=== PATIENT | female | born 1985 | race Caucasian/White ===

== ENCOUNTER 2017-04-11 13:44 | Inpatient (IN) | payer MEDICAID, OTHER ==
[~2017-04-11] VITALS: Ht 157.5 cm; Wt 72.0 kg
[2017-04-11] VITALS (17 sets, daily range): BP systolic 94–118; BP diastolic 53–73; PULSE 100–112; RESP 12–19; Ht 157.5 cm; Wt 72.0 kg
[~2017-04-11 13:44] MED LIST: EPHEDrine SULFATE 50 MG/5 ML SYG ONE
[2017-04-11] MEDS ORDERED: SOD CHLORIDE 0.9% 1,000 ML IV STA (14:07)
[2017-04-11 14:27] LABS: ADD SCAN DIFF NO
[2017-04-11 14:30] LABS: BASOPHILS % 0.1 % (0.0-2.0); EOSINOPHILS % 0.3 % (0.0-7.0); HEMATOCRIT 35.3 % (37.0-47.0); HEMOGLOBIN 12.4 g/dl (12.0-16.0); LYMPHOCYTES # 2.2 10^3/ul (0.8-2.9); LYMPHOCYTES % 15.9 % (15.0-51.0); MEAN CORPUSCULAR HEMOGLOBIN 31.2 pg (29.0-33.0); MEAN CORPUSCULAR HGB CONC 35.1 g/dl (32.0-37.0); MEAN CORPUSCULAR VOLUME 88.9 fl (82.0-101.0); MEAN PLATELET VOLUME 9.2 fl (7.4-10.4); MONOCYTE # 0.6 10^3/ul (0.3-0.9); MONOCYTES % 4.4 % (0.0-11.0); NEUTROPHIL # 10.9 10^3/ul (1.6-7.5); NEUTROPHILS % 78.7 % (39.0-77.0); PLATELET COUNT 231 10^3/UL (140-415); RED BLOOD COUNT 3.97 10^6/ul (4.20-5.40); RED CELL DISTRIBUTION WIDTH 12.6 % (11.5-14.5); WHITE BLOOD COUNT 13.8 10^3/ul (4.8-10.8)
[2017-04-11] MEDS ORDERED: ONDANSETRON 4 MG INJ IV PRN ×2 (14:30→19:00)
[2017-04-11] MEDS ORDERED: ACETAMINOPHEN 325 MG TAB PO PRN (14:30)
[2017-04-11 14:47] LABS: ALBUMIN 3.3 g/dl (3.3-4.9); POTASSIUM 3.5 mmol/L (3.5-5.1)
[2017-04-11 14:49] LABS: BILIRUBIN,INDIRECT 0.3 mg/dl (0-1.1); BILIRUBIN,TOTAL 0.3 mg/dl (0.2-1.3); CREATININE 0.56 mg/dl (0.44-1.00)
[2017-04-11 14:50] LABS: ALBUMIN/GLOBULIN RATIO 1.03; CALCIUM 8.4 mg/dl (8.4-10.2); TOTAL PROTEIN 6.5 g/dl (6.1-8.1)
--- NOTE | 2017-04-11 14:51 | RADRPT ---
PROCEDURE: XR Chest. CLINICAL INDICATION: chest pain, vaginal bleeding TECHNIQUE: Single frontal view of the chest was obtained COMPARISON: None FINDINGS: The heart and mediastinum are within normal limits. The lungs are clear. There is no pleural effusion or pneumothorax. RPTAT: AA IMPRESSION: No acute disease. .Renard Leary MD, MD Date Time Electronically viewed and signed by .Renard Leary MD, on 04/11/2017 14:51 .S/
--- NOTE | 2017-04-11 15:47 | RADRPT ---
PROCEDURE: US Pelvis. TECHNIQUE: Multiple sonographic images of the pelvis were obtained utilizing a transabdominal and endovaginal technique. The images were reviewed on a PACS workstation. COMPARISON: None. FINDINGS: The uterus is normal in size with a normal appearance of the myometrium. The uterus measures 10.5 x 4.3 x 4.5 cm. The endometrial stripe is heterogeneous in appearance and has the thickness of 16 mm. There is no increased vascularity. The ovaries are not visualized. No adnexal masses are seen. No free fluid is present within the pelvis. RPTAT: AA IMPRESSION: Heterogeneous and thickened endometrium with no increased vascularity. Ovaries not visualized. .Renard Leary MD, MD Date Time Electronically viewed and signed by .Renard Leary MD, MD on 04/11/2017 15:46 .S/
[2017-04-11] MEDS ORDERED: APIXABAN 5 MG TABLET PO ONE (16:30)
--- NOTE | 2017-04-11 16:34 | HP ---
Date/Time of Note Date/Time of Note DATE: 04/11/17 TIME: 16:27 Assessment/Plan VTE Prophylaxis VTE Prophylaxis Intervention: SCD's Assessment/Plan Assessment/Plan 31 y/o with active vaginal bleeding s/p TAB -admit to inpatient -plan to D&C for retained POC -serial cbc, transfuse prn HPI/ROS Admit Date/Time Admit Date/Time Hx of Present Illness 31 y/o [facility]. Patient started hemorrhaging during and after procedure. [facility] and felt she was bleeding from the cervical area. A teresa balloon and ring forceps were placed in transit. In the ER, patient continued to bleed heavily. Reports pain has decreased on its own. ROS Per HPI. Other systems negative. PMH/Family/Social Past Medical History Medical History: no pertinent history Past Surgical History TAB today Family History Significant Family History: no pertinent family hx Social History Denies habits. Smoking Status: Never smoker Exam/Review of Systems Vital Signs Vitals Vital Signs Date Time Temp Pulse Resp B/P Pulse Ox O2 Delivery O2 Flow Rate FiO2 04/11/17 14:02 97.4 73 18 100/72 97 Exam Exam Gen: NAD HEENT: NCAT CV: RRR Pulm: CTAB Abd: +ttp in lower abdomen, no r/g Ext: NT Pelvic: enlarged uterus, +ttp, +blood clots in os, retained POC in external os with active bleeding Labs Result Diagram: 04/11/17 14204/11/17 1420 KANDICE WEST April 11, 2017 16:34
[2017-04-11] MEDS ORDERED: LIDOCAINE 2% (SDV) 5 ML INJ ONE (17:37)
[2017-04-11] MEDS ORDERED: PROPOFOL 20 ML ONE (17:37)
[2017-04-11] MEDS ORDERED: MEPERIDINE 100 MG INJ ONE (17:37)
[2017-04-11] MEDS ORDERED: METOCLOPRAMIDE 10 MG INJ ONE (18:04)
[2017-04-11] MEDS ORDERED: CEFAZOLIN 1 GM INJ ONE (18:04)
[2017-04-11] MEDS ORDERED: ONDANSETRON 4 MG INJ ONE (18:04)
[2017-04-11] MEDS ORDERED: METHYLERGONOVINE 0.2 MG INJ ONE (18:07)
--- NOTE | 2017-04-11 18:47 | ERA ---
ER Documentation Chief Complaint Date/Time DATE: 04/11/17 TIME: 18:44 Chief Complaint BIB RA FOR EVAL OF HEAVY VB DURING D&C IN CLINIC HPI Patient is a 31-year-old female with no medical problems who presents with vaginal bleeding. The patient [facility] at [facility] receiving an at 11 weeks but after the she kept bleeding. She was given Pitocin and misoprostol and was transferred to the emergency department by ambulance. She is complaining of abdominal and pelvic pain. She feels cold. She is a Ab1. She does not currently have a primary doctor and does not know the name of the spud sorter. ROS All systems reviewed and are negative except as per history of present illness. Medications Home Meds No Active Prescriptions or Reported Meds Allergies Allergies: Coded Allergies: No Known Allergy (Unverified , 04/11/17) PMhx/Soc Medical and Surgical Hx: pt denies Medical Hx, pt denies Surgical Hx Hx Alcohol Use: No Hx Substance Use: No Hx Tobacco Use: No Smoking Status: Never smoker FmHx Family History: No diabetes Physical Exam Vitals Vital Signs Date Time Temp Pulse Resp B/P Pulse Ox O2 Delivery O2 Flow Rate FiO2 04/11/17 16:40 75 20 100/82 98 Room Air 04/11/17 14:02 97.4 73 18 100/72 97 Physical Exam Const: Moderate distress Head: Atraumatic Eyes: Normal Conjunctiva ENT: Normal External Ears, Nose and Mouth. Neck: Full range of motion..~ No meningismus. Resp: Clear to auscultation bilaterally Cardio: Regular rate and rhythm, no murmurs Abd: Soft, non tender, non distended. Normal bowel sounds Skin: Pale skin Back: No midline or flank tenderness Ext: No cyanosis, or edema Neur: Awake and alert : Patient has 2 hemostats inside the vagina clamp and the cervix at this time as well as a Caldwell catheter which is blown up inside the cervix Result Diagram: 04/11/17 1420 04/11/17 1420 Results 24 hrs Laboratory Tests Test 04/11/17 14:20 White Blood Count 13.810^3/ul Red Blood Count 3.9710^6/ul Hemoglobin 12.4g/dl Hematocrit 35.3% Mean Corpuscular Volume 88.9fl Mean Corpuscular Hemoglobin 31.2pg Mean Corpuscular Hemoglobin Concent 35.1g/dl Red Cell Distribution Width 12.6% Platelet Count 26915^3/UL Mean Platelet Volume 9.2fl Neutrophils % 78.7% Lymphocytes % 15.9% Monocytes % 4.4% Eosinophils % 0.3% Basophils % 0.1% Nucleated Red Blood Cells % 0.0/100WBC Neutrophils # 10.910^3/ul Lymphocytes # 2.210^3/ul Monocytes # 0.610^3/ul Eosinophils # 0.010^3/ul Basophils # 0.010^3/ul Nucleated Red Blood Cells # 0.010^3/ul Sodium Level 136mmol/L Potassium Level 3.5mmol/L Chloride Level 107mmol/L Carbon Dioxide Level 16mmol/L Anion Gap 17 Blood Urea Nitrogen 6mg/dl Creatinine 0.56mg/dl Glucose Level 102mg/dl Calcium Level 8.4mg/dl Total Bilirubin 0.3mg/dl Direct Bilirubin 0.00mg/dl Indirect Bilirubin 0.3mg/dl Aspartate Amino Transf (AST/SGOT) 24IU/L Alanine Aminotransferase (ALT/SGPT) 29IU/L Alkaline Phosphatase 45IU/L Total Protein 6.5g/dl Albumin 3.3g/dl Globulin 3.20g/dl Albumin/Globulin Ratio 1.03 Beta HCG, Quantitative 20604.0mIU/ml Current Medications Medications (Trade) Dose Ordered Sig/Yun Route PRN Reason Start Time Stop Time Status Last Admin Dose Admin Sodium Chloride (NS) 1,000 ml @ 1,000 mls/hr Q1H STAT IV 04/11/17 14:07 04/11/17 15:06 DC 04/11/17 14:53 Ondansetron HCl (Zofran Inj) 4 mg BRIDGE ORDER PRN IV NAUSEA AND/OR VOMITING 04/11/17 14:30 04/12/17 14:29 Acetaminophen (Tylenol Tab) 650 mg ER BRIDGE PRN PO MILD PAIN/FEVER 04/11/17 14:30 04/12/17 14:29 Apixaban (Eliquis) 10 mg ONCE ONCE PO 04/11/17 16:30 04/11/17 16:30 DC Procedures/MDM Ultrasound shows no obvious retained products of conception per radiology. Patient is a 31-year-old female presents with acute vaginal bleeding after D&C. The patient continues to bleed after Dr. Silva the laborist cardiopulmonary physical therapist came to the bedside and remove the clamps. Therefore the patient will need to be taken to the operating room for further procedure. Dr. Silva Martin products of the cervical office and these will need to be removed but she will do this in the operating room. The patient's hemoglobin is 12 at this time and she does not require transfusion but she has bled a significant amount and on repeat H&H may have dropped. She appears to be hemodynamically intact at this time and has no issues with coagulation and is on no anticoagulant medicines. Critical Care: Time: 35 minutes excluding all billable procedures. Treatments/Evaluations: Close monitoring and treatment of unstable vital signs, cardiorespiratory, and neurologic status, while maintaining tight balance of fluid, respiratory, and cardiac interventions. Departure Diagnosis: Primary Impression: Vaginal bleeding Condition: COLT Sebastian MD April 11, 2017 18:47
--- NOTE | 2017-04-11 18:55 | OPR ---
Date/Time of Note Date/Time of Note DATE: 04/11/17 TIME: 18:48 Operative Report Procedure Date: April 11, 2017 Preoperative Diagnosis Incomplete Sab, vaginal bleeding Postoperative Diagnosis Same Operation Performed Dilation and suction curettage, placement of Bakri balloon Surgeon: KANDICE WEST Anesthesia: general Anesthesiologist: ANGELES KEYES MD Estimated Blood Loss: other Specimens Uterine contents, products of conception Complications Active bleeding s/p D&C treated with methergine and Bakri balloon Disposition: PACU Operative\Procedure Findings 9 week size uterus, active bleeding Procedure Description Patient was taken to the OR where general anesthesia was administered. She was prepped and draped in the usual sterile fashion in dorsal lithotomy position in [facility]. A weighted speculum was placed and anterior cervix was grasped with a ring forceps. The cervix was dilated and easily accomodated a 12mm suction curette tip which was passed multiple times until uterus was noted to be empty. Sharp curette was used to confirm. Patient continued to have active bleeding despite giving methergine. Therefore, a Bakri balloon was placed and inflated to 180cc. Bleeding subsided after placement. Caldwell catheter was also placed. EBL 800ml in OR. KANDICE WEST. April 11, 2017 18:55
[2017-04-11] MEDS ORDERED: HYDROmorphONE (0.2 MG/ML) 10ML SYG IV ONE (18:56)
[2017-04-11] MEDS ORDERED: DIPHENHYDRAMINE 50 MG INJ IV PRN (19:00)
[2017-04-11] MEDS ORDERED: EPHEDrine SULFATE 50 MG/5 ML SYG IV PRN (19:00)
[2017-04-11] MEDS ORDERED: morphine (1 MG/ML) 10ML SYRINGE IV PRN ×2 (19:00)
[2017-04-11] MEDS ORDERED: METHYLERGONOVINE 0.2 MG TAB PO SCH (19:00)
[2017-04-11] MEDS ORDERED: hydrALAzine 20 MG INJ IV PRN (19:00)
[2017-04-11] MEDS ORDERED: HYDROmorphONE (0.2 MG/ML) 10ML SYG IV PRN (19:00)
[2017-04-11] MEDS ORDERED: METOCLOPRAMIDE 10 MG INJ IV PRN (19:00)
[2017-04-11] MEDS ORDERED: MIDAZOLAM 1 MG/ML 2 ML INJ IV PRN (19:00)
[2017-04-11] MEDS ORDERED: NACL 0.9% 3 ML SYG IV SCH (19:00)
[2017-04-11] MEDS ORDERED: HYDROCODONE/APAP (5/325) TAB PO PRN (19:00)
[2017-04-11] MEDS ORDERED: LABETALOL HCL 20MG INJ IV PRN (19:00)
[2017-04-11] MEDS ORDERED: IBUPROFEN 600 MG TAB PO PRN (19:00)
[2017-04-11] MEDS ORDERED: MEPERIDINE 25 MG INJ IV PRN (19:00)
[2017-04-11] MEDS: HYDROmorphONE (0.2 MG/ML) 10ML SYG IV PRN ×2 (19:05→19:19)
[2017-04-11 19:13] LABS: ADD UMIC YES; URINE BILIRUBIN (Dip) 1+ (NEGATIVE); URINE BLOOD (Dip) 1+ (NEGATIVE); URINE COLOR DK. YELLOW (YELLOW); URINE GLUCOSE (Dip) NEGATIVE (NEGATIVE); URINE KETONES (Dip) 40 (NEGATIVE); URINE LEUKOCYTE ESTERASE (Dip) NEGATIVE (NEGATIVE); URINE NITRITE (Dip) NEGATIVE (NEGATIVE); URINE TOTAL PROTEIN (Dip) 1+ (NEGATIVE); URINE UROBILINOGEN (Dip) 0.2 E.U./dL (0.1-1.0)
[2017-04-11 19:23] LABS: ICTOTEST NEGATIVE (NEGATIVE)
[2017-04-11 19:36] LABS: ADD SCAN DIFF NO
[2017-04-11 19:39] LABS: BASOPHILS % 0.1 % (0.0-2.0); HEMATOCRIT 24.2 % (37.0-47.0); HEMOGLOBIN 8.1 g/dl (12.0-16.0); LYMPHOCYTES # 1.2 10^3/ul (0.8-2.9); LYMPHOCYTES % 8.5 % (15.0-51.0); MEAN CORPUSCULAR HEMOGLOBIN 30.8 pg (29.0-33.0); MEAN CORPUSCULAR HGB CONC 33.5 g/dl (32.0-37.0); MEAN PLATELET VOLUME 9.5 fl (7.4-10.4); MONOCYTE # 0.3 10^3/ul (0.3-0.9); MONOCYTES % 2.4 % (0.0-11.0); NEUTROPHILS % 88.3 % (39.0-77.0); PLATELET COUNT 163 10^3/UL (140-415); RED BLOOD COUNT 2.63 10^6/ul (4.20-5.40); RED CELL DISTRIBUTION WIDTH 12.8 % (11.5-14.5); WHITE BLOOD COUNT 13.6 10^3/ul (4.8-10.8)
[2017-04-11] MEDS: SOD CHLORIDE 0.9% 1,000 ML IV SCH (21:52)
[2017-04-11] MEDS: CEFAZOLIN 1 GM/50 ML (PMX) 50 ML IVPB SCH (21:52)
[2017-04-12] VITALS (9 sets, daily range): BP systolic 75–97; BP diastolic 42–60; PULSE 93–108; RESP 18–22
[2017-04-12] MEDS: SOD CHLORIDE 0.9% 1,000 ML IV SCH ×3 (02:16→18:51)
[2017-04-12] MEDS: METHYLERGONOVINE 0.2 MG TAB PO SCH ×4 (04:30→21:34)
[2017-04-12] MEDS: CEFAZOLIN 1 GM/50 ML (PMX) 50 ML IVPB SCH ×3 (05:20→21:14)
--- NOTE | 2017-04-12 09:32 | QN ---
Documentation Comment patient is seen at the bedside :Bakri balloon was removed .It appears there there are no further bleeding in vaginal exam Caldwell catheter was removed CBC B-HCG and Repeat ultrasound ordered patient's questions extensively answered cytotec 200 microgram q 6hr PO started KAYLYNN SANDERSON M.D. April 12, 2017 09:31
[2017-04-12 10:00] LABS: ADD SCAN DIFF NO
[2017-04-12 10:06] LABS: ABNORMAL IP MESSAGE 1; BASOPHILS % 0.1 % (0.0-2.0); EOSINOPHILS % 0.2 % (0.0-7.0); HEMATOCRIT 19.8 % (37.0-47.0); LYMPHOCYTES # 2.1 10^3/ul (0.8-2.9); LYMPHOCYTES % 18.6 % (15.0-51.0); MEAN CORPUSCULAR HEMOGLOBIN 30.5 pg (29.0-33.0); MEAN CORPUSCULAR HGB CONC 32.8 g/dl (32.0-37.0); MEAN PLATELET VOLUME 9.1 fl (7.4-10.4); MONOCYTE # 0.6 10^3/ul (0.3-0.9); MONOCYTES % 5.3 % (0.0-11.0); NEUTROPHIL # 8.6 10^3/ul (1.6-7.5); NEUTROPHILS % 75.4 % (39.0-77.0); PLATELET COUNT 173 10^3/UL (140-415); RED BLOOD COUNT 2.13 10^6/ul (4.20-5.40); RED CELL DISTRIBUTION WIDTH 13.1 % (11.5-14.5)
[2017-04-12 10:17] LABS: HEMOGLOBIN 6.5 g/dl (12.0-16.0)
--- NOTE | 2017-04-12 12:21 | RADRPT ---
PROCEDURE: US Pelvis TECHNIQUE: Multiple sonographic images of the pelvis were obtained utilizing a transabdominal and endovaginal technique. The images were reviewed on a PACS workstation. COMPARISON: Pelvic ultrasound from 04/11/2017 FINDINGS: The uterus measures 10.6 x 4.9 x 5.8 cm. The endometrial echo complex measures 12 mm in thickness at the level of the fundal apex. There is a complex fluid collection without vascular flow, likely b lood products, in the endocervical canal with somewhat irregular borders at the level of the lower u terine segment measuring 2.5 x 2.0 x 2.7 cm. There is no evidence of focal vascularity in the endome trium to suggest retained products of conception. Several sub-centimeter Nabothian cysts are identified. The right ovary measures 2.5 x 1.3 x 2.0 cm. The left ovary measures 2.5 x 1.7 x 2.1 cm. There is no rmal vascular flow in both ovaries. There is a 1.9 cm complex cystic lesion with posterior acoustic enhancement, heterogeneous internal echoes, and prominent peripheral vascular flow in the left ovary which is likely a corpus luteal cys t. No significant pelvic free fluid is identified. IMPRESSION: Thickening of the endometrium to 12 mm without evidence of retained products of conception. An irregular 2.7 cm collection in the endocervical canal at the level of the lower uterine segment i s likely due to blood products from the recent dilatation and curettage. 1.9 cm complex cystic lesion in the left ovary is likely a corpus luteal cyst. RPTAT: EE William Francis Physician Date Time Electronically viewed and signed by William Francis Physician on 04/12/2017 12:20 /
[2017-04-12 15:27] LABS: WHITE BLOOD COUNT 11.4 10^3/ul (4.8-10.8)
[2017-04-13] MEDS: SOD CHLORIDE 0.9% 1,000 ML IV SCH ×2 (04:16→10:55)
[2017-04-13] MEDS: METHYLERGONOVINE 0.2 MG TAB PO SCH ×3 (04:30→16:30)
[2017-04-13] MEDS: CEFAZOLIN 1 GM/50 ML (PMX) 50 ML IVPB SCH ×2 (05:23→14:00)
[2017-04-13 05:24] LABS: ADD SCAN DIFF NO
[2017-04-13 05:31] LABS: BASOPHILS % 0.1 % (0.0-2.0); EOSINOPHILS # 0.1 10^3/ul (0.0-0.5); EOSINOPHILS % 0.9 % (0.0-7.0); HEMATOCRIT 23.8 % (37.0-47.0); HEMOGLOBIN 8.1 g/dl (12.0-16.0); LYMPHOCYTES # 2.6 10^3/ul (0.8-2.9); LYMPHOCYTES % 32.4 % (15.0-51.0); MEAN CORPUSCULAR HEMOGLOBIN 30.3 pg (29.0-33.0); MEAN CORPUSCULAR VOLUME 89.1 fl (82.0-101.0); MEAN PLATELET VOLUME 9.5 fl (7.4-10.4); MONOCYTE # 0.5 10^3/ul (0.3-0.9); MONOCYTES % 6.3 % (0.0-11.0); NEUTROPHIL # 4.8 10^3/ul (1.6-7.5); NEUTROPHILS % 59.8 % (39.0-77.0); PLATELET COUNT 154 10^3/UL (140-415); RED BLOOD COUNT 2.67 10^6/ul (4.20-5.40); RED CELL DISTRIBUTION WIDTH 15.1 % (11.5-14.5); WHITE BLOOD COUNT 8.1 10^3/ul (4.8-10.8)
[2017-04-13 07:00] VITALS: BP 103/64; RESP 18
--- NOTE | 2017-04-13 18:03 | PD.PPDC ---
RAMP SUPERVISOR Discharge Instruction Condition Patient Condition: Good Diet Diet: Resume Regular Diet Activity/Restrictions Activity: Normal Activity May Shower Restrictions: No Sexual Activity Nothing in the Vagina No Perla No Tampons, douche Follow-up Follow-up with Physician: 3, Day/Days Provider Information: [facility] Return to clinic for GRAIN RECEIVER Instructions: Fever greater than 101 Chills Worsening abdominal pain Excessive Vaginal Bleeding LOKESH LADD MD April 13, 2017 18:02
--- NOTE | 2017-04-13 18:13 | DS ---
Date/Time of Note Date/Time of Note DATE: 04/13/17 TIME: 18:05 Discharge Summary Admission/Discharge Info Admit Date/Time April 11, 2017 at 20:33 Discharge Date/Time March. Final Diagnosis Completed elective . S/P hemorrhage with procedure. S/P blood transfusion. Patient Condition: Good Procedures D and C. Transfuse 2 units PRBC's. Hx of Present Illness 31 y/o [facility] Patient started hemorrhaging during and after procedure. [facility] were [facility] to [facility] and felt she was bleeding from the cervical area. A teresa balloon and ring forceps were placed in transit. In the ER, patient continued to bleed heavily. Reports pain has decreased on its own. Hospital Course Pt was taken to the OR for retained products to complete the AB and the pt again hemorrhaged and was not able to be controlled via usual means. A Bakri balloon was placed x 24 hours. When it was removed the pt did well. She did need 2 units of blood but today her Hgb is 8.1 and she has no bleeding of note. Home Meds No Active Prescriptions or Reported Meds Follow-up Plan Pt to [facility] to [facility] 04[facility]16 to get a Depo-Provera shot. Pt encouraged to be very good about control and if she does get that it will be a that she wants as she may have this same problem even after delivery of a baby. She will potentially at increased risk of a hysterectomy, as well, at that time. She and her boyfriend indicated understanding. Primary Care Provider Care Physician No Primary Time spent on discharge: < 30 minutes Pending Labs Laboratory Tests Test 04/13/17 04:35 White Blood Count 8.110^3/ul (4.8-10.8) Red Blood Count 2.6710^6/ul (4.20-5.40) Hemoglobin 8.1g/dl (12.0-16.0) Hematocrit 23.8% (37.0-47.0) Mean Corpuscular Volume 89.1fl (82.0-101.0) Mean Corpuscular Hemoglobin 30.3pg (29.0-33.0) Mean Corpuscular Hemoglobin Concent 34.0g/dl (32.0-37.0) Red Cell Distribution Width 15.1% (11.5-14.5) Platelet Count 01828^3/UL (140-415) Mean Platelet Volume 9.5fl (7.4-10.4) Neutrophils % 59.8% (39.0-77.0) Lymphocytes % 32.4% (15.0-51.0) Monocytes % 6.3% (0.0-11.0) Eosinophils % 0.9% (0.0-7.0) Basophils % 0.1% (0.0-2.0) Nucleated Red Blood Cells % 0.0/100WBC (0.0-0.0) Neutrophils # 4.810^3/ul (1.6-7.5) Lymphocytes # 2.610^3/ul (0.8-2.9) Monocytes # 0.510^3/ul (0.3-0.9) Eosinophils # 0.110^3/ul (0.0-0.5) Basophils # 0.010^3/ul (0.0-0.1) Nucleated Red Blood Cells # 0.010^3/ul (0.0-0.0) Beta HCG, Quantitative 7824.2mIU/ml LOKESH LADD MD April 13, 2017 18:12
== END 2017-04-13 18:45 | disposition home or self-care (01) | DRG 770 ==
LOC: E/R 13:44 → SDS 17:17 → MS1 20:33
PROVIDERS: ADMIT Obstetrics & Gynecology; ATTEND Obstetrics & Gynecology
PROC: 0W3R7ZZ Control Bleeding in Genitourinary Tract, Via Natural or Artificial Opening (ICD-10-PCS; 2017-04-11)
PROC: 10D17ZZ Extraction of Products of Conception, Retained, Via Natural or Artificial Opening (ICD-10-PCS; principal; 2017-04-11 16:00)
PROC: 30233N1 Transfusion of Nonautologous Red Blood Cells into Peripheral Vein, Percutaneous Approach (ICD-10-PCS; 2017-04-12)
DX: O04.6 Delayed or excessive hemorrhage following (induced) termination of pregnancy (principal)
CPT/HCPCS: 36415; 36430; 71010; 76830; 76856; 80053; 81001; 84702; 85025; 86850; 86900; 86901; 86920; 87086; 88305; 93005; J0690; J1170; J2175; J2210; J2270; J2405; J2765; J7030; P9016

== ENCOUNTER 2019-06-08 09:08 | Outpatient (CLI) | payer MEDICAID, OTHER ==
[~2019-06-08] VITALS: Ht 157.5 cm; Wt 83.7 kg
[~2019-06-08 09:08] MED LIST changes: -EPHEDrine SULFATE 50 MG/5 ML SYG ONE; +IBUP-1542 PO; +PREN-93 PO; +URSO300C21 PO
[2019-06-08 09:12] VITALS: Ht 157.5 cm; Wt 83.7 kg
[2019-06-08] MEDS ORDERED: FAMOTIDINE 20 MG TAB PO ONE (09:30)
--- NOTE | 2019-06-08 12:13 | PN ---
Triage Information Date/Time Reason for visit: Weeks of Gestation 35.4 /Para Results/Medications Results 24 hrs Laboratory Tests Test 06/08/19 09:18 Urine Color NED Urine Clarity SLIGHTLY CLOUDY A Urine pH 5.0 Urine Specific [place] 1.024 Urine Ketones TRACE A Urine Nitrite NEGATIVE Urine Bilirubin NEGATIVE Urine Urobilinogen 2+ H Urine Leukocyte Esterase 2+ H Urine Microscopic RBC 0 Urine Microscopic WBC 8 H Urine Squamous Epithelial Cells FEW Urine Calcium Oxalate Crystals MANY A Urine Mucus FEW A Urine Hemoglobin NEGATIVE Urine Glucose NEGATIVE Urine Total Protein 1+ H Assessment/Plan 33-year-old -0-1-0 at 35 weeks and 4 days presents with epigastric pain. Denies any leakage of fluid or vaginal bleeding. Patient given Pepcid 20 mg. Electronic monitor category 1 strip. Sterile vaginal exam x2 unchanged. Patient to be discharged home and follow-up with primary distribution field engineer. All inquiries addressed. MILESTONE,DANIS VALENZUELA Jun 08, 2019 12:13
--- NOTE | 2019-06-08 12:15 | TRIAGE ---
OB Triage Datetime Report Generated by CPN: 06/08/2019 12:15 Datetime: 06/08/2019 11:56 Stage of : OB Triage Maternal Assessment Level of Consciousness: Keenly Alert, Responsive DTR's/Clonus: DTRs 1+ Headache: Denies Breath Sounds, Left: Clear and Equal Breath Sounds, Right: Clear and Equal Nausea/Vomiting: Denies RUQ Epigastric Pain: Denies Labor Evaluation Frequency: IRREGULAR Monitor Mode: External Duration (sec)2399: 50-90 Quality: Mild Pattern: Normal: <= 5 Contractions in 10 Minutes Resting Tone [place]: Relaxed Heart Rate FHR Baseline Rate: 135 Monitor Mode: External US Variability: Moderate 6-25 bpm Accelerations: 15X15 Decelerations: None Category: Category I Pain Assessment Pain Scale: 6 Pain Presence: Constant Pain Type: Ache Pain Location: Abdomen Pain Goal: 3 Vaginal Bleeding: None Cervix, Consistency: Soft Cervix, Position: Anterior Datetime: 06/08/2019 11:11 Vaginal Exam Dilatation (cms): 2.0 Effacement (%): 50 Station: -2 Exam By: CISCO CASE Vaginal Bleeding: None Cervix, Consistency: Soft Cervix, Position: Posterior Presentation 'A': Cephalic Datetime: 06/08/2019 11:00 Stage of : OB Triage Maternal Assessment Level of Consciousness: Keenly Alert, Responsive DTR's/Clonus: DTRs 1+ Headache: Denies Breath Sounds, Left: Clear and Equal Breath Sounds, Right: Clear and Equal Nausea/Vomiting: Denies RUQ Epigastric Pain: Denies Labor Evaluation Frequency: IRREGULAR Monitor Mode: External Duration (sec)2399: 40-70 Quality: Mild Resting Tone [place]: Relaxed Heart Rate FHR Baseline Rate: 140 Monitor Mode: External US Variability: Moderate 6-25 bpm Accelerations: 15X15 Decelerations: None Category: Category I Pain Assessment Pain Scale: 0 Pain Presence: None/Denies Pain Type: N/A Pain Goal: 3 Vaginal Bleeding: None Datetime: 06/08/2019 10:56 Stage of : OB Triage Datetime: 06/08/2019 10:00 Stage of : OB Triage Maternal Assessment Level of Consciousness: Keenly Alert, Responsive DTR's/Clonus: DTRs 1+ Headache: Denies Breath Sounds, Left: Clear and Equal Breath Sounds, Right: Clear and Equal Nausea/Vomiting: Denies RUQ Epigastric Pain: Denies Labor Evaluation Frequency: 2-10 Monitor Mode: External Duration (sec)2399: 50-90 Quality: Mild Pattern: Normal: <= 5 Contractions in 10 Minutes Resting Tone [place]: Relaxed Heart Rate FHR Baseline Rate: 135 Monitor Mode: External US Variability: Moderate 6-25 bpm Accelerations: 15X15 Decelerations: None Category: Category I Pain Assessment Pain Scale: 6 Pain Presence: Constant Pain Type: Ache Pain Location: Abdomen Pain Goal: 3 Vaginal Bleeding: None Cervix, Consistency: Soft Cervix, Position: Anterior Datetime: 06/08/2019 09:20 Stage of : OB Triage Maternal Assessment Level of Consciousness: Keenly Alert, Responsive DTR's/Clonus: DTRs 1+ Headache: Denies Blurred Vision: No Respiratory Effort: Unlabored Breath Sounds, Left: Clear and Equal Breath Sounds, Right: Clear and Equal Nausea/Vomiting: Denies RUQ Epigastric Pain: Denies Facial Edema: None Labor Evaluation Frequency: X3 Monitor Mode: External Duration (sec)2399: 50-90 Quality: Mild Pattern: Normal: <= 5 Contractions in 10 Minutes Resting Tone [place]: Relaxed Heart Rate FHR Baseline Rate: 135 Monitor Mode: External US Variability: Moderate 6-25 bpm Decelerations: None Pain Assessment Pain Scale: 6 Pain Presence: Constant Pain Type: Ache Pain Location: Abdomen Pain Goal: 3 Pain Assessment Comments: EPIGASTRIC PAIN Vaginal Exam Dilatation (cms): 2.0 Effacement (%): 50 Station: -2 Exam By: CISCO CASE Membrane Status: Intact Vaginal Bleeding: None Cervix, Consistency: Soft Cervix, Position: Anterior Presentation 'A': Cephalic Datetime: 06/08/2019 09:00 Assessment Type: Triage Maternal Assessment Level of Consciousness: Keenly Alert, Responsive DTR's/Clonus: DTRs 2+; No Clonus Headache: Denies Blurred Vision: No Respiratory Effort: Unlabored; Regular Rhythm; Equal Expansion Breath Sounds, Left: Clear and Equal Breath Sounds, Right: Clear and Equal Nausea/Vomiting: Denies RUQ Epigastric Pain: Denies Lower Extremities Edema: None Degree: None Upper Extremities Edema: None Degree: None Facial Edema: None Fall Risk Assessment History of Falling: (0) No Secondary Diagnosis: (0) No Ambulatory Aid: (0) Bedrest/Nurse Assist IV Therapy: (0) No Gait: (0) Normal/Bedrest/Immobile Mental Status: (0) Oriented to Own Ability Fall Score: 0 Fall Risk Score Definition: No Risk: No action required Datetime: 06/08/2019 08:55 Time of Arrival: 06/08/2019 08:55 EGA: 35.4 Arrived By: Ambulatory Arrived From: Home Chief Complaint: PT SAFIA EIN FROM HOME C/O EPIGATRIC PAIN AFTE HAVING DINNER WITH SPICY FOODS. DENIE S ANY BLURRED VISION, HEADACHES, SWELLEN HANDS AND FEET Movement: Present Contractions: Denies/Absent Rupture of Membranes: Denies Vaginal Bleeding: None Vaginal Discharge: Denies Recent Sexual Intercouse: Denies Abdominal Trauma: Not Applicable Patient Complaints: Epigastric Pain Additional Patient Complaints: NONE Time Provider Notified: 06/08/2019 09:00 Provider Notified: MOE/PATRIC Initial Plan: LUKAS
== END 2019-06-08 12:05 | disposition home or self-care (01) ==
LOC: L-D 09:08 → OBT 09:08
PROVIDERS: ATTEND Obstetrics & Gynecology
DX: O26.893 Other specified pregnancy related conditions, third trimester (principal); Z3A.35 35 weeks gestation of pregnancy; R10.13 Epigastric pain
CPT/HCPCS: 81001; Z7500; Z7610; G0463

== ENCOUNTER 2019-06-16 16:37 | Outpatient (CLI) | payer OTHER ==
[~2019-06-16] VITALS: Ht 157.5 cm; Wt 83.8 kg
[2019-06-16 16:48] VITALS: Ht 157.5 cm; Wt 83.8 kg
--- NOTE | 2019-06-16 17:34 | PN ---
Triage Information Date/Time 2018 Reason for visit: 33-year-old female 2 para 0 at 36 weeks and 5 days gestation sent in from clinic because of finding of low amniotic fluid index during ultrasound Weeks of Gestation 36 weeks and 5 days /Para 2 para 0 Diabetes: none Hypertention: none Objective Heart Rate: 140's Heart Rate Comments Reactive Contractions: None Results/Medications Imaging Results The EFW = 2552 g, 13.5%ile based on LMP age. Amniotic fluid index verbally reported to be over 8 cm Disposition: Discharge Assessment/Plan Will repeat biophysical profile and antepartum testing in 3 days NETO STOVER MD Jun 16, 2019 17:34
--- NOTE | 2019-06-16 17:45 | TRIAGE ---
OB Triage Datetime Report Generated by CPN: 06/16/2019 17:45 Datetime: 06/16/2019 17:38 Headache: Denies Blurred Vision: No Respiratory Effort: Unlabored Breath Sounds, Left: Clear and Equal Breath Sounds, Right: Clear and Equal Labor Evaluation Frequency: NONE Monitor Mode: External Resting Tone [place]: Relaxed Heart Rate FHR Baseline Rate: 150 Monitor Mode: External US Variability: Moderate 6-25 bpm Accelerations: 15X15 Decelerations: None Category: Category I Pain Assessment Pain Scale: 0 Pain Presence: None/Denies Pain Type: N/A Pain Goal: 3 Vaginal Exam Membrane Status: Intact Datetime: 06/16/2019 17:13 Stage of : OB Triage Headache: Denies Breath Sounds, Left: Clear and Equal Breath Sounds, Right: Clear and Equal Labor Evaluation Frequency: NONE Monitor Mode: External Resting Tone [place]: Relaxed Heart Rate FHR Baseline Rate: 150 Monitor Mode: External US Variability: Moderate 6-25 bpm Accelerations: 15X15 Decelerations: None Pain Assessment Pain Scale: 0 Pain Presence: None/Denies Pain Type: N/A Pain Goal: 3 Vaginal Exam Membrane Status: Intact Datetime: 06/16/2019 16:46 Assessment Type: Triage Maternal Assessment Level of Consciousness: Keenly Alert, Responsive DTR's/Clonus: DTRs 2+; No Clonus Headache: Denies Blurred Vision: No Respiratory Effort: Unlabored; Regular Rhythm; Equal Expansion Breath Sounds, Left: Clear and Equal Breath Sounds, Right: Clear and Equal Nausea/Vomiting: Denies RUQ Epigastric Pain: Denies Lower Extremities Edema: None Degree: None Upper Extremities Edema: None Degree: None Facial Edema: None Fall Risk Assessment History of Falling: (0) No Secondary Diagnosis: (0) No Ambulatory Aid: (0) Bedrest/Nurse Assist IV Therapy: (0) No Gait: (0) Normal/Bedrest/Immobile Mental Status: (0) Oriented to Own Ability Fall Score: 0 Fall Risk Score Definition: No Risk: No action required Datetime: 06/16/2019 16:32 Time of Arrival: 06/16/2019 16:32 EGA: 36.5 Arrived By: Ambulatory Arrived From: Dr. Oneil Chief Complaint: PT CAME IN FROM CLINIC FOR LOW TEZ 5.4 Movement: Present Contractions: Denies/Absent Rupture of Membranes: Denies Vaginal Discharge: Denies Recent Sexual Intercouse: Denies Abdominal Trauma: Not Applicable Additional Patient Complaints: NNE Time Provider Notified: 06/16/2019 16:46 Provider Notified: MOE Initial Plan: NST, BPP Datetime: 06/08/2019 09:00 Fall Score: 0 Fall Risk Score Definition: No Risk: No action required Datetime: 06/08/2019 08:55 EGA: 35.4
== END 2019-06-16 17:38 | disposition home or self-care (01) ==
LOC: OBT 16:37 → L-D 16:40 → OBT 17:38
PROVIDERS: ATTEND Obstetrics & Gynecology
DX: O41.8X30 Other specified disorders of amniotic fluid and membranes, third trimester, not applicable or unspecified (principal); Z3A.36 36 weeks gestation of pregnancy
CPT/HCPCS: 76815; 76818; G0463

== ENCOUNTER 2019-06-19 11:31 | Inpatient (IN) | payer OTHER ==
[~2019-06-19] VITALS: Ht 157.5 cm; Wt 84.0 kg
[2019-06-19 11:56] VITALS: BP 107/67; PULSE 87; RESP 20
[2019-06-19 11:57] VITALS: Ht 157.5 cm; Wt 84.0 kg
[2019-06-19] MEDS ORDERED: LIDOCAINE 1% (MPF) 30 ML INJ INJ PRN (14:30)
[2019-06-19] MEDS ORDERED: METHYLERGONOVINE 0.2 MG INJ IM PRN (14:30)
[2019-06-19] MEDS ORDERED: IBUPROFEN 600 MG TAB PO PRN (14:30)
[2019-06-19] MEDS ORDERED: OXYTOCIN 30 UNITS/LR 500 ML IV SCH ×3 (14:30→15:30)
[2019-06-19] MEDS ORDERED: MISOPROSTOL 200 MCG TAB PR PRN (14:30)
[2019-06-19] MEDS ORDERED: OXYTOCIN 30 UNITS/LR 500 ML IV PRN (14:30)
[2019-06-19] MEDS ORDERED: CARBOPROST 250 MCG INJ IM PRN (14:30)
[2019-06-19] MEDS ORDERED: OXYCODONE/ASPIRIN (4.88/325) TAB PO PRN (14:30)
--- NOTE | 2019-06-19 14:35 | QN ---
Documentation Comment OB H&P Patient Name: Rupa Hicks Unit Number: [id number] Date of : 1985 Patient Status: Admitted Inpatient Attending Doctor: Neto Bae MD Date/Time of Note Date/Time of Note Date/Time of Note DATE: 06/19/19 TIME: 14:21 OB - History OB - History Hx of Present Free Text/Dictation 45-year-old female 2 para 0 at 37 weeks and 1 day gestation admitted for induction of labor because of cholestasis of by bile acids drawn on 05/18/2019 Perinatologist was contacted and agreed with the management Patient had a normal bile acids on Actigall however remained symptomatic Last Menstrual Period: Oct 02, 2018 Estimated Due Date: Jul 09, 2019 : 2 Para: 0 Therapeutic : 1 Care: Good Care Ultrasounds: Normal mid trimester US Obstetrical Complications: Other (Advanced maternal age and elevated bile acids) Past Family/Social History * Past Medical, Surgical, Family and Obstetric Histories reviewed from chart. Blood Type: A+ Rubella: immune RPR/VDRL: Negative ( ) GBS Status: Negative HBsAG: Negative OB Admission Exam OB Admission Exam Vital Signs Vital Signs Vital Signs Date Temp Pulse Resp B/P (MAP) Pulse Ox O2 O2 Flow FiO2 Time Delivery Rate 06/18/19 98.0 81 18 127/71 Room Air 22:11 (89) Physical Exam HEENT: WNL Heart: Rhythm Normal Lungs: Clear, Equal Abdomen: WNL Extremities: Normal Reflexes: Normal Cervical Dilatation: None Effacement: 0% Station: -3 Membranes: Intact Heart Rate: 140's Accelerations: Accelerations Present Decelerations: No Decelerations Varibility: Marked Contractions on Admission: None Last 72 hours Lab Results CBC & BMP 06/19/19 00:10 OB Assessment/Plan OB Assessment/Plan Other Assessment: 37 weeks and 1 day gestation Elevated bile acids Currently has bodily itching Other plan: Start induction using Cytotec Copies To: Copies To: NETO BAE MD Jun 19, 2019 14:27 NETO BAE MD Jun 19, 2019 14:35
[2019-06-19] MEDS ORDERED: MISOPROSTOL 50 MCG CAPSULE PO SCH (15:00)
[2019-06-19] MEDS: LACTATED RINGER'S 1,000 ML IV SCH ×2 (15:18→20:11)
[2019-06-19] MEDS: URSODIOL 300 MG CAP PO SCH (18:47)
[2019-06-19] MEDS ORDERED: URSODIOL 300 MG CAP PO SCH (21:00)
[2019-06-20] MEDS: URSODIOL 300 MG CAP PO SCH ×4 (02:02→21:12)
[2019-06-20] MEDS: LACTATED RINGER'S 1,000 ML IV SCH ×3 (05:32→18:33)
--- NOTE | 2019-06-20 18:07 | PN ---
Date/Time of Note Date/Time of Note DATE: 06/20/19 TIME: 17:57 OB Subjective Subjective Subjective Complaint of minimal labor contractions OB Objective Objective Objective Vital signs are stable in general physical exam is unchanged Cervix is 70% and 2 cm open with vertex at -2 station Membranes were ruptured and amniotic fluid appeared clear OB Assessment/Plan Other Assessment: 37+ weeks gestation Cholestasis Other plan: Continue with Pitocin augmentation of labor NETO STOVER MD Jun 20, 2019 18:07
--- NOTE | 2019-06-20 18:58 | PREAC ---
Date/Time of Note Date/Time of Note DATE: 06/20/19 TIME: 18:57 Anesthesia Eval and Record Evaluation Time Pre-Procedure Interview DATE: 06/20/19 TIME: 18:57 Age 33 Sex female NPO: 8 hrs Preoperative diagnosis iup at 37 weeks Planned procedure labor epidural Past Medical History Past Medical History: None Surgery & Anesthesia Issues No known issue Meds Anticoagulation: No Beta Beatrice within 24 hr: No Reason Beta Beatrice not given: Pt. not on B-Beatrice Reported Medications Ursodiol* (Actigall*) 300 Mg Cap, 300 MG PO TID, #90 CAP 06/19/19 Vit No.124/Iron/FA ( Vitamin Tablet) 1 Each Tablet, 1 EACH PO, TAB 06/16/19 Current Medications Lactated Ringer's 1,000 ml @ 125 mls/hr Q8H IV Last administered on 06/20/19at 18:33; Admin Dose 125 MLS/HR; Start 06/19/19 at 14:24 Lidocaine (Xylocaine 1% (Mpf)) 30 ml ONCE PRN INJ .EPISIOTOMY; Start 06/19/19 at 14:30 Oxytocin/Lactated Ringer's 500 ml @ 500 mls/hr ONCE POST IV ; Start 06/19/19 at 14:30 Oxytocin/Lactated Ringer's 500 ml @ 125 mls/hr POST IV ; Start 06/19/19 at 14:30 Ibuprofen (Motrin) 600 mg ONCE PRN PO .PAIN 1-5; Start 06/19/19 at 14:30 Oxycodone/Aspirin (Percodan) 2 tab ONCE PRN PO .PAIN 6-10; Start 06/19/19 at 14:30 Oxytocin/Lactated Ringer's 500 ml @ 0 mls/hr ONCE PRN IV .VAGINAL BLEEDING; Start 06/19/19 at 14:30 Methylergonovine Maleate (Methergine) 0.2 mg ONCE PRN IM .VAGINAL BLEEDING; Start 06/19/19 at 14:30 Carboprost Tromethamine (Hemabate) 250 mcg ONCE PRN IM .VAGINAL BLEEDING; Start 06/19/19 at 14:30 Misoprostol (Cytotec) 1,000 mcg ONCE PRN [place] .VAGINAL BLEEDING; Start 06/19/19 at 14:30 Ursodiol (Actigall) 300 mg TID PO Last administered on 06/20/19at 13:17; Admin Dose 300 MG; Start 06/19/19 at 16:00 Oxytocin/Lactated Ringer's 500 ml @ 0 mls/hr FOR INDUCTION IV Last administered on 06/19/19at 16:26; Admin Dose 1 MLS/HR; Start 06/19/19 at 15:30 Meds reviewed: Yes Allergies Coded Allergies: No Known Allergy (Unverified , 06/16/19) Allergies Reviewed: Yes Labs/Studies Labs Reviewed: Reviewed by anesthesiologist Result Diagram: 06/19/19 1500 test: Positive Pre-procedure Exam Last vitals Vital Signs Date Temp Pulse Resp B/P (MAP) Pulse Ox O2 O2 Flow FiO2 Time Delivery Rate 06/19/19 97.8 87 20 107/67 98 Room Air 11:56 (80) Airway: Adequate mouth opening, Adequate thyromental dist Mallampati: Mallampati II Teeth: Normal Lung: Normal Heart: Normal ASA Physical Status ASA physical status: 2 Emergency: None Planned Anesthetic Neuraxial: Epidural Planned Pain Management Parenteral pain med Pre-operative Attestations Prior to commencing anesthesia and surgery, the patient was re-evaluated, there was verification of: *The patient's identity *The results of appropriate recent lab work and preoperative vital signs *The above evaluation not changing prior to induction *Anesthetic plan, risk benefits, alternative and complications discussed with patient/family; questions answered; patient/family understands, accepts and wishes to proceed. MERVAT BETH Jun 20, 2019 18:58
[2019-06-20] MEDS ORDERED: ONDANSETRON 4 MG INJ IV PRN (19:00)
[2019-06-20] MEDS ORDERED: DIPHENHYDRAMINE 50 MG INJ IV PRN (19:00)
[2019-06-20] MEDS ORDERED: NALOXONE (0.4 MG/ML) INJ IV PRN (19:00)
[2019-06-20] MEDS ORDERED: FENTAnyl 2MCG/ML-ROPIV 0.2% 100 ML BAG EPI SCH (19:00)
[2019-06-20] MEDS ORDERED: FENTAnyl 2MCG/ML-ROPIV 0.2% 100 ML ONE (19:01)
--- NOTE | 2019-06-20 22:08 | PAC ---
Date/Time of Note Date/Time of Note DATE: 06/20/19 TIME: 22:07 Post-Anesthesia Notes Post-Anesthesia Note Last documented vital signs Vital Signs Date Temp Pulse Resp B/P (MAP) Pulse Ox O2 O2 Flow FiO2 Time Delivery Rate 06/19/19 97.8 87 20 107/67 98 Room Air 2130 (80) Activity: WNL Respiratory function: WNL Cardiovascular function: WNL Mental status: Baseline Pain reasonably controlled: Yes Hydration appropriate: Yes Nausea/Vomiting absent: Yes MERVAT BETH Jun 20, 2019 22:08
[2019-06-21] MEDS ORDERED: AMPICILLIN 2 GM/NS (PMX) 100 ML IV ONE (06:30)
[2019-06-21] MEDS: LACTATED RINGER'S 1,000 ML IV SCH (06:35)
[2019-06-21] MEDS ORDERED: ACETAMINOPHEN 325 MG TAB PO ONE ×2 (07:00→11:00)
[2019-06-21] MEDS ORDERED: GENTAMICIN 120 MG/NS (PMX) 100 ML IVPB ONE (07:00)
[2019-06-21] MEDS ORDERED: MINERAL OIL LIGHT 10 ML VIAL TOP ONE (08:30)
[2019-06-21] MEDS ORDERED: KETOROLAC 30 MG INJ ONE (09:27)
[2019-06-21] MEDS ORDERED: KETOROLAC 30 MG INJ IV STA (09:29)
--- NOTE | 2019-06-21 09:40 | LDN ---
Date/Time of Note Date/Time of Note DATE: 06/21/19 TIME: 09:38 Delivery Summary Vacuum extraction of a viable infant over midline episiotomy Weeks of Gestation 37+ weeks Assisted Vaginal Delivery: Vacuum (Vacuum extraction was performed because of variable deceleration of heart tones and at times bradycardic episodes) Placenta Delivered: Spontaneously, Intact & Complete Episiotomy: Yes Indication for episiotomy Variable deceleration of heart tones and vacuum extraction Laceration repair: Episiotomy was repaired in layers using 2-0 Vicryl deeper layers and 2 chromic and superficial layer Anesthesia type: Epidural Estimated blood loss: 200 Sponge & Needle done & correct: Yes All needle counts correct: Yes Any foreign bodies felt in the: No Infant Delivery Information Sex Infant Sex: female Apgars 1 Minute: 9 5 Minute: 9 Suctioning Nose & mouth suctioned at [place]: Yes Delee suction performed: No Umbilical Cord Umbilical cord with: 3 Vessels Cord presentations: no nuchal cord Cord Blood was obtained: Yes Mother & Baby Disposition Disposition Mom & Baby to Maternity; Good: Yes (Mother and baby were recovering in good condition) Mom transferred to: Other (Maternity) Baby to NICU: No NETO STOVER MD Jun 21, 2019 09:40
[2019-06-21] MEDS ORDERED: AMPICILLIN 1 GM/NS (PMX) 50 ML IV SCH (10:30)
[2019-06-21 12:05] VITALS: BP 105/51; PULSE 78; RESP 18
[2019-06-21] MEDS: LACTATED RINGER'S 1,000 ML IV* SCH ×2 (12:11→20:11)
[2019-06-21] MEDS ORDERED: WITCH HAZEL/GLYCERIN PAD PR PRN (12:30)
[2019-06-21] MEDS ORDERED: OXYTOCIN 30 UNITS/LR 500 ML IV PRN (12:30)
[2019-06-21] MEDS ORDERED: CARBOPROST 250 MCG INJ IM PRN (12:30)
[2019-06-21] MEDS: IBUPROFEN 600 MG TAB PO SCH ×3 (12:30→23:44)
[2019-06-21] MEDS ORDERED: HYDROCODONE/APAP (5/325) TAB PO PRN ×2 (12:30)
[2019-06-21] MEDS ORDERED: MISOPROSTOL 200 MCG TAB PR PRN (12:30)
[2019-06-21] MEDS ORDERED: ZOLPIDEM 5 MG TAB PO PRN (12:30)
[2019-06-21] MEDS ORDERED: BENZOCAINE 20% 56 ML SPRAY TOP PRN (12:30)
[2019-06-21] MEDS ORDERED: DIBUCAINE 1% 30 GM OINT TOP PRN (12:30)
[2019-06-21] MEDS ORDERED: LANOLIN HPA 1 PKT TOP PRN (12:30)
[2019-06-21] MEDS ORDERED: METHYLERGONOVINE 0.2 MG INJ IM PRN (12:30)
[2019-06-21] MEDS: AMPICILLIN/SULB 3 GM/NS (PMX) 100 ML IVPB SCH ×3 (13:05→23:44)
[2019-06-21 15:40] VITALS: BP 93/50; PULSE 76; RESP 16
[2019-06-21 19:40] VITALS: BP 104/60; PULSE 71; RESP 19
[2019-06-21] MEDS: MAGNESIUM HYDROXIDE 30ML CUP PO SCH (21:02)
[2019-06-21] MEDS: SENNA/DOCUSATE NA (8.6MG/50MG) TAB PO SCH (21:03)
[2019-06-22 03:40] VITALS: BP 109/61; PULSE 70; RESP 19
[2019-06-22] MEDS: IBUPROFEN 600 MG TAB PO SCH ×4 (05:51→23:50)
[2019-06-22] MEDS: LACTATED RINGER'S 1,000 ML IV* SCH ×3 (05:52→21:28)
[2019-06-22] MEDS: AMPICILLIN/SULB 3 GM/NS (PMX) 100 ML IVPB SCH ×4 (05:52→23:50)
[2019-06-22 08:00] VITALS: BP 92/61; PULSE 68; RESP 18
[2019-06-22] MEDS: MAGNESIUM HYDROXIDE 30ML CUP PO SCH ×2 (10:14→21:52)
[2019-06-22] MEDS: SENNA/DOCUSATE NA (8.6MG/50MG) TAB PO SCH ×2 (10:14→21:52)
[2019-06-22 16:00] VITALS: BP 98/60; PULSE 86; RESP 16
--- NOTE | 2019-06-22 17:10 | DS ---
Date/Time of Note Date/Time of Note Home today or next day DATE: 06/22/19 TIME: 17:09 Obstetrical Discharge Record Final Diagnosis Final Diagnosis: Term delivered Other Final Diagnosis Status post vaginal delivery Vaginal Delivery Obstetrical Delivery: Spontaneous, Episiotomy, Repaired Complications Augmentation: Yes Induction: Yes Condition on Discharge Physical Assessment Last Vitals: See nurse's notes Voiding: Yes Bowel Movement: Yes Breast: Soft, non-tender, Filling Fundus: Firm Abdomen and Incision: Abdomen is soft with firm fundus Episiotomy: Episiotomy is healing well and appears clean Calf Tenderness: No Patient Condition: Good NETO STOVER MD Jun 22, 2019 17:10
--- NOTE | 2019-06-22 17:11 | PD.PPDC ---
COTTON PROGRAM TECHNICIAN Discharge Instruction Provider Information Physician Information 34-year-old female had vaginal delivery Diagnosis [id number] Final Diagnosis: [id number] Status post vaginal delivery Condition [id number] Patient Condition: Mzvql2f Good Diet Fthks5Be Diet: Nxsyw3z Resume Regular Diet Activity/Restrictions Swgmt7Of Activity: [id number] Normal Activity May Shower [id number] Restrictions: Wsofs6u Nothing in the Vagina [id number] Return to Work or School: [id number] Aug 10, 2019 Follow-up Follow-up with Physician: 2, 4, Week/Weeks (In clinic) Return to clinic for [id number] OB Instructions: Mgext4g Breast Tenderness Depression Comment: Pelvic rest for 6 weeks NETO STOVER MD Jun 22, 2019 17:11
[2019-06-22 19:40] VITALS: BP 108/74; PULSE 68; RESP 18
[2019-06-23 03:40] VITALS: BP 110/78; PULSE 74; RESP 19
[2019-06-23] MEDS: LACTATED RINGER'S 1,000 ML IV* SCH (04:11)
[2019-06-23] MEDS: AMPICILLIN/SULB 3 GM/NS (PMX) 100 ML IVPB SCH (05:34)
[2019-06-23] MEDS: IBUPROFEN 600 MG TAB PO SCH ×2 (05:34→11:57)
[2019-06-23 08:00] VITALS: BP 104/57; PULSE 75; RESP 16
[2019-06-23] MEDS ORDERED: DIPHTH/TET/ACEL PERTUSS (ADULT) 0.5 ML VIAL IM* ONE (09:00)
[2019-06-23] MEDS: SENNA/DOCUSATE NA (8.6MG/50MG) TAB PO SCH (09:00)
[2019-06-23] MEDS ORDERED: VARICELLA VACCINE LIVE/PF 1,350 UNIT/0.5 ML ML SC* ONE (09:00)
[2019-06-23] MEDS: MAGNESIUM HYDROXIDE 30ML CUP PO SCH (09:00)
[2019-06-23] MEDS ORDERED: MEASLES,MUMPS,RUBELLA VACCINE INJ SC* ONE (09:00)
--- NOTE | 2019-06-24 17:02 | DELSUM ---
Delivery Summary A-C Datetime Report Generated by CPN: 06/24/2019 17:02 DELIVERY PERSONNEL Commercial Loan Closer: Herve, Sia MATERNAL INFORMATION Delivery Anesthesia: Local; Epidural Medications in Delivery: LR WITH 30 UNITS PITOCIN Delivery QBL (ml): 200 Placenta Cultured: Yes Maternal Complications: Maternal Fever LABOR SUMMARY EDC: 07/09/2019 00:00 No. Babies in Womb: 1 Attempted: No Labor Anesthesia: None LABOR INFORMATION Reason for Induction: Other Reason for Induction- Other: CHOLESTASIS Onset of Labor: 06/20/2019 17:51 Complete Dilatation: 06/21/2019 01:45 Group B Beta Strep: Negative Antibiotics # of Doses: 0 Steroids Given: None Reason Steroids Not Administered: Not Applicable MEMBRANES Membranes Rupture Method: Artificial Rupture of Membranes: 06/20/2019 17:51 Length of Rupture (hr): 15.48 Amniotic Fluid Color: Clear Amniotic Fluid Amount: Moderate Amniotic Fluid Odor: None STAGES OF LABOR Stage 1 hr: 7 Stage 1 min: 54 Stage 2 hr: 7 Stage 2 min: 35 Stage 3 hr: 0 Stage 3 min: 2 Total Time in Labor hr: 15 Total Time in Labor min: 31 VAGINAL DELIVERY Episiotomy: Median Laceration Extension: N/A Laceration Type: None Laceration Repair: Yes Initial Vag Sponge Count: 10 Final Vag Sponge Count: 10 Initial Vag Sharps Count: 3 Final Vag Sharps Count: 3 Sponge Count Correct: Yes; Vaginal Sweep Performed Sharps Count Correct: Yes BABY A INFORMATION Delivery Date/Time: 06/21/2019 09:20 Method of Delivery: Vaginal Born in Route : No : N/A Forceps: N/A Vacuum Extraction: Successful Shoulder Dystocia : N/A ASSISTED DELIVERY BABY A Indication for Assisted Delivery: distress Catheter Prior to Procedure: Yes Station Vacuum/Forcep Apply: +3 Position Vacuum/Forcep Apply: Left Occipital Anterior Vacuum Number of Pulls: 1 Vacuum Number of PopOffs: 0 Reduce Pressure btwn Ctx: Yes Vacuum Secretarial Teacher: [place] Total Time Vacuum Applied: 1 minute SHOULDER DYSTOCIA BABY A Delivery Date/Time: 06/21/2019 09:20 PRESENTATION/POSITION BABY A Presentation: Cephalic Cephalic Presentation: Vertex Breech Presentation: N/A PLACENTA INFORMATION BABY A Placenta Delivery Time : 06/21/2019 09:22 Placenta Method of Delivery: Spontaneous Placenta Status: Delivered SCORES BABY A Heart Rate 1 min: >100 bpm Resp Effort 1 min: Good Cry Reflex Irritability 1 min: Cough/Sneeze/Pulls Away Muscle Tone 1 min: Active Motion Color 1 min: Body [place], Extremit Blue Resuscitation Effort 1 min: Tactile Stimulation SCORE 1 MIN: 9 Heart Rate 5 min: >100 bpm Resp Effort 5 min: Good Cry Reflex Irritability 5 min: Cough/Sneeze/Pulls Away Muscle Tone 5 min: Active Motion Color 5 min: Body [place], Extremit Blue Resuscitation Effort 5 min: Tactile Stimulation SCORE 5 MIN: 9 INFORMATION BABY A Gestational Age at Delivery: 37.1 Gestational Status: Early Term- 37- 38.6 Weeks Infant Outcome : Liveborn, with signs of life Condition : Stable Infant Sex: Female IDENTIFICATION/MEDS BABY A ID Band Number: [id number] Sensor Applied: Yes Sensor Number: [id number] Sensor Location : Cord Clamp WEIGHT/LENGTH BABY A Infant Birthweight (gm): 2625 Infant Weight (lb): 5 Infant Weight (oz): 13 Length (in): 18.50 Infant Length (cm): 46.99 CORD INFORMATION BABY A No. Cord Vessels: 3 Nuchal Cord : N/A Cord Blood Taken: No Banking/Donate Info: NO Infant Suction: Mouth; Nose ASSESSMENT BABY A Infant Complications: Decreased Variability; Extended Tachycardi Physical Findings at Delivery: Within Normal Limits Respirations: Appears Normal Typewriter Operator Automatic/ALS Called : No Care By: Kimberly Tavera RN Transferred To: Remains with Mother
--- NOTE | 2019-06-30 09:46 | DELSUM ---
Delivery Summary A-C Datetime Report Generated by CPN: 06/30/2019 09:46 DELIVERY PERSONNEL Store Consultant: Herve, Sia MATERNAL INFORMATION Delivery Anesthesia: Local; Epidural Medications in Delivery: LR WITH 30 UNITS PITOCIN Delivery QBL (ml): 200 Placenta Cultured: Yes Maternal Complications: Maternal Fever LABOR SUMMARY EDC: 07/09/2019 00:00 No. Babies in Womb: 1 Attempted: No Labor Anesthesia: None LABOR INFORMATION Reason for Induction: Other Reason for Induction- Other: CHOLESTASIS Onset of Labor: 06/20/2019 17:51 Complete Dilatation: 06/21/2019 01:45 Group B Beta Strep: Negative Antibiotics # of Doses: 0 Steroids Given: None Reason Steroids Not Administered: Not Applicable MEMBRANES Membranes Rupture Method: Artificial Rupture of Membranes: 06/20/2019 17:51 Length of Rupture (hr): 15.48 Amniotic Fluid Color: Clear Amniotic Fluid Amount: Moderate Amniotic Fluid Odor: None STAGES OF LABOR Stage 1 hr: 7 Stage 1 min: 54 Stage 2 hr: 7 Stage 2 min: 35 Stage 3 hr: 0 Stage 3 min: 2 Total Time in Labor hr: 15 Total Time in Labor min: 31 VAGINAL DELIVERY Episiotomy: Median Laceration Extension: N/A Laceration Type: None Laceration Repair: Yes Initial Vag Sponge Count: 10 Final Vag Sponge Count: 10 Initial Vag Sharps Count: 3 Final Vag Sharps Count: 3 Sponge Count Correct: Yes; Vaginal Sweep Performed Sharps Count Correct: Yes BABY A INFORMATION Delivery Date/Time: 06/21/2019 09:20 Method of Delivery: Vaginal Born in Route : No : N/A Forceps: N/A Vacuum Extraction: Successful Shoulder Dystocia : N/A ASSISTED DELIVERY BABY A Indication for Assisted Delivery: distress Catheter Prior to Procedure: Yes Station Vacuum/Forcep Apply: +3 Position Vacuum/Forcep Apply: Left Occipital Anterior Vacuum Number of Pulls: 1 Vacuum Number of PopOffs: 0 Reduce Pressure btwn Ctx: Yes Vacuum Bilingual Middle School Teacher: [place] Total Time Vacuum Applied: 1 minute SHOULDER DYSTOCIA BABY A Delivery Date/Time: 06/21/2019 09:20 PRESENTATION/POSITION BABY A Presentation: Cephalic Cephalic Presentation: Vertex Breech Presentation: N/A PLACENTA INFORMATION BABY A Placenta Delivery Time : 06/21/2019 09:22 Placenta Method of Delivery: Spontaneous Placenta Status: Delivered SCORES BABY A Heart Rate 1 min: >100 bpm Resp Effort 1 min: Good Cry Reflex Irritability 1 min: Cough/Sneeze/Pulls Away Muscle Tone 1 min: Active Motion Color 1 min: Body [place], Extremit Blue Resuscitation Effort 1 min: Tactile Stimulation SCORE 1 MIN: 9 Heart Rate 5 min: >100 bpm Resp Effort 5 min: Good Cry Reflex Irritability 5 min: Cough/Sneeze/Pulls Away Muscle Tone 5 min: Active Motion Color 5 min: Body [place], Extremit Blue Resuscitation Effort 5 min: Tactile Stimulation SCORE 5 MIN: 9 INFORMATION BABY A Gestational Age at Delivery: 37.1 Gestational Status: Early Term- 37- 38.6 Weeks Infant Outcome : Liveborn, with signs of life Condition : Stable Infant Sex: Female IDENTIFICATION/MEDS BABY A ID Band Number: [id number] Sensor Applied: Yes Sensor Number: [id number] Sensor Location : Cord Clamp WEIGHT/LENGTH BABY A Infant Birthweight (gm): 2625 Infant Weight (lb): 5 Infant Weight (oz): 13 Length (in): 18.50 Infant Length (cm): 46.99 CORD INFORMATION BABY A No. Cord Vessels: 3 Nuchal Cord : N/A Cord Blood Taken: No Banking/Donate Info: NO Infant Suction: Mouth; Nose ASSESSMENT BABY A Infant Complications: Decreased Variability; Extended Tachycardi Physical Findings at Delivery: Within Normal Limits Respirations: Appears Normal Content Creation Manager/ALS Called : No Care By: Kimberly Tavera RN Transferred To: Remains with Mother
== END 2019-06-23 17:02 | disposition home or self-care (01) | DRG 805 ==
LOC: OBT 11:31 → L-D 11:31 → OBT 14:28 → L-D 14:28 → PP1 06-21 12:04 → UNDODISIN 06-23 17:02
PROVIDERS: ADMIT Obstetrics & Gynecology; ATTEND Obstetrics & Gynecology
PROC: 3E033VJ Introduction of Other Hormone into Peripheral Vein, Percutaneous Approach (ICD-10-PCS; 2019-06-19)
PROC: 10D07Z6 Extraction of Products of Conception, Vacuum, Via Natural or Artificial Opening (ICD-10-PCS; principal; 2019-06-21)
PROC: 0W8NXZZ Division of Female Perineum, External Approach (ICD-10-PCS; 2019-06-21)
DX: O26.62 Liver and biliary tract disorders in childbirth (principal); K83.1 Obstruction of bile duct; Z37.0 Single live birth; O76 Abnormality in fetal heart rate and rhythm complicating labor and delivery; Z3A.37 37 weeks gestation of pregnancy
CPT/HCPCS: 62322; 76818; 85025; 85610; 85730; 86592; 86850; 86900; 86901; 87340; 88307; 90716; 99464; G0463; J0290; J0295; J1580; J1885; J2590; J3010; J7120